=== PATIENT | female | born 1995 | race Caucasian/White ===

== ENCOUNTER 2018-10-07 06:00 | Inpatient (IN) | payer OTHER ==
[2018-10-07] MEDS ORDERED: Diphenoxylate HCl/Atropine Tablet PO PRN ×2 (07:01)
[2018-10-07] MEDS ORDERED: Ibuprofen 800 MG TAB PO PRN (07:01)
[2018-10-07] MEDS ORDERED: Acetaminophen 500 MG TAB PO PRN (07:01)
[2018-10-07] MEDS ORDERED: HYDROcodone/Acetaminophen 5/325 mg Tablet PO PRN ×2 (07:01)
[2018-10-07] MEDS ORDERED: NS / Oxytocin 40 units/1000ml 1,000 ML IV PRN (07:01)
[2018-10-07] MEDS ORDERED: Lidocaine 1% (PF) 30 ML VIAL SC PRN (07:01)
[2018-10-07] MEDS ORDERED: Ondansetron PF 4 MG/2 ML Vial IVP PRN ×3 (07:01→15:49)
[2018-10-07] MEDS ORDERED: Misoprostol 200 MCG TAB PR PRN (07:01)
[2018-10-07] MEDS ORDERED: Docusate 100 MG CAP PO PRN (07:01)
[2018-10-07] MEDS ORDERED: Promethazine HCl 25 MG/ML VIAL IM PRN ×2 (07:01→11:05)
[2018-10-07] MEDS ORDERED: Butorphanol Tartrate 1 MG/ML VIAL SLOW IVP PRN (07:01)
[2018-10-07] MEDS ORDERED: NS w/ Oxytocin 10 units 500 ML IV SCH (07:01)
[2018-10-07 07:28] VITALS: BMI 24.7
[2018-10-07] MEDS: Lactated Ringer's 1,000 ML IV SCH ×2 (07:30→11:18)
[2018-10-07 07:55] LABS: Hemoglobin 10.4 g/dL (12.0-16.0); Mean Corpuscular HGB CONC 32.9 g/dL (32.0-36.0); Mean Corpuscular Hemoglobin 29.7 pg (27.0-31.0); Mean Corpuscular Volume 90.3 fL (78.0-98.0); Mean Platelet Volume 9.9 fL (7.4-10.4); Platelet Count 146 thou/uL (130-400); RBC Distribution Width 11.2 % (11.5-14.5); Red Blood Cell (RBC) Count 3.51 mill/uL (4.20-5.40); White Blood Cell (WBC) Count 13.5 thou/uL (4.8-10.8)
[2018-10-07 09:15] LABS: HBSAg Index 0.19 S/CO (0-0.99); Hep B Surf Ag Non-Reactive S/CO (NonReactive)
[2018-10-07 09:16] LABS: Syphilis Antibody Nonreactive (Nonreactive); Syphilis Antibody Index 0.03 S/CO (<1.00 Non-Reactive)
[2018-10-07] MEDS ORDERED: Fentanyl 4 mcg/Bup 0.1% Cadd 100 ML ONE (10:23)
[2018-10-07] MEDS ORDERED: Acetaminophen 325 MG TAB PO PRN (11:05)
[2018-10-07] MEDS ORDERED: ePHEDrine/0.9% NaCl/PF SYRINGE 50 mg/10 ml SLOW IVP PRN (11:05)
[2018-10-07] MEDS ORDERED: diphenhydrAMINE 50 MG/ML VIAL IVP PRN (11:05)
[2018-10-07] MEDS ORDERED: Eucerin (Mineral Oil/Petrolatum,White) 30 gm Jar TOP PRN (11:05)
[2018-10-07] MEDS ORDERED: Naloxone HCl 0.4 mg/ml Vial IVP PRN ×2 (11:05)
[2018-10-07] MEDS ORDERED: Lactated Ringer's 500 ML IV PRN (11:05)
[2018-10-07] MEDS ORDERED: Communication Order-Pharmacy FS SCH (11:15)
[2018-10-07] MEDS ORDERED: Fentanyl 4 mcg/Bupivacaine 0.1% Cassette 100 ML EPIDURAL SCH (11:15)
[2018-10-07] MEDS ORDERED: Bupivacaine/Epinephrine 0.25% 30 ML VIAL ONE (12:00)
[2018-10-07] MEDS ORDERED: Lidocaine 1% (PF) 30 ML VIAL ONE (13:09)
[2018-10-07] MEDS ORDERED: NS / Oxytocin 40 units/1000ml 1,000 ML ONE (13:09)
[2018-10-07] MEDS ORDERED: diphenhydrAMINE 25 MG CAP PO PRN (15:49)
[2018-10-07] MEDS ORDERED: Milk Of Magnesia 30 ML UDCUP PO PRN (15:49)
[2018-10-07] MEDS ORDERED: Lanolin Ointment 7 GM TUBE TOP PRN (15:49)
[2018-10-07] MEDS ORDERED: Misoprostol 200 MCG TAB VAG PRN (15:49)
[2018-10-07] MEDS ORDERED: Benzocaine/Menthol 20-0.5% 60 ML CAN TOP PRN (15:49)
[2018-10-07] MEDS ORDERED: Zolpidem Tartrate 5 MG TAB PO PRN (15:49)
[2018-10-07] MEDS ORDERED: Preparation H Ointment 28 GM TUBE PR PRN (15:49)
[2018-10-07] MEDS ORDERED: Bisacodyl 10 MG SUPP PR PRN (15:49)
[2018-10-07] MEDS ORDERED: NS / Oxytocin 40 units/1000ml 1,000 ML IV SCH (16:00)
[2018-10-07] MEDS: Ibuprofen 800 MG TAB PO SCH (17:53)
[2018-10-07] MEDS: Ferrous Sulfate 325 MG TAB PO SCH (19:17)
[2018-10-07] MEDS: Docusate Calcium (SURFAK) 240 MG CAP PO SCH (22:28)
[2018-10-07] MEDS ORDERED: Acetaminophen/Codeine 30-300mg Tablet PO PRN ×2 (23:00)
[2018-10-08] MEDS: Ibuprofen 800 MG TAB PO SCH ×3 (00:40→15:52)
[2018-10-08] MEDS: Docusate Calcium (SURFAK) 240 MG CAP PO SCH (08:21)
[2018-10-08] MEDS: Prenatal Vitamin 1 TAB PO SCH (08:21)
[2018-10-08] MEDS: Ferrous Sulfate 325 MG TAB PO SCH ×2 (08:21→15:53)
[2018-10-08 08:32] LABS: Hemoglobin 10.8 g/dL (12.0-16.0); Mean Corpuscular HGB CONC 33.6 g/dL (32.0-36.0); Mean Corpuscular Volume 92.3 fL (78.0-98.0); Mean Platelet Volume 9.6 fL (7.4-10.4); Platelet Count 124 thou/uL (130-400); RBC Distribution Width 11.5 % (11.5-14.5); Red Blood Cell (RBC) Count 3.48 mill/uL (4.20-5.40); White Blood Cell (WBC) Count 14.6 thou/uL (4.8-10.8)
[2018-10-08] MEDS ORDERED: Adacel (T-DAP) 0.5 ML SYRINGE IM ONE (09:00)
[2018-10-09] MEDS: Ibuprofen 800 MG TAB PO SCH ×2 (00:24→08:19)
[2018-10-09] MEDS: Docusate Calcium (SURFAK) 240 MG CAP PO SCH ×2 (00:25→08:19)
[2018-10-09 08:15] VITALS: BP 107/57; TEMP 98.4
[2018-10-09] MEDS: Prenatal Vitamin 1 TAB PO SCH (08:19)
[2018-10-09] MEDS: Ferrous Sulfate 325 MG TAB PO SCH (08:20)
== END 2018-10-09 12:47 | disposition home or self-care (01) | DRG 807 ==
LOC: L&D 06:15 → 3SE 19:16
PROVIDERS: ADMIT Obstetrics & Gynecology; ATTEND Obstetrics & Gynecology
PROC: 10E0XZZ Delivery of Products of Conception, External Approach (ICD-10-PCS; principal; 2018-10-07)
PROC: 4A0HXCZ Measurement of Products of Conception, Cardiac Rate, External Approach (ICD-10-PCS; 2018-10-07)
PROC: 3E033VJ Introduction of Other Hormone into Peripheral Vein, Percutaneous Approach (ICD-10-PCS; 2018-10-07)
DX: O80 Encounter for full-term uncomplicated delivery (principal); Z37.0 Single live birth; Z3A.39 39 weeks gestation of pregnancy; Z88.0 Allergy status to penicillin; Z91.013 Allergy to seafood
CPT/HCPCS: 36415; 51702; 85027; 86780; 86850; 86900; 86901; 87340; 90715; J2001